=== PATIENT | male | born 1990 | race Caucasian/White ===

== ENCOUNTER 2021-10-26 13:24 | Emergency (ER) | payer OTHER ==
[~2021-10-26] VITALS: Ht 185.4 cm; Wt 79.4 kg
[2021-10-26 13:27] VITALS: BP 106/72
[2021-10-26] MEDS ORDERED: SULF400T11 PO (13:59)
[2021-10-26] MEDS ORDERED: IBUP800T27 PO (13:59)
[2021-10-26] MEDS ORDERED: GABA-339 PO (13:59)
== END 2021-10-26 14:03 | disposition home or self-care (01) ==
LOC: ER 13:24
DX: S50.821 Blister (nonthermal) of right forearm (principal); L08.9 Local infection of the skin and subcutaneous tissue, unspecified; G89.29 Other chronic pain; Z76.0 Encounter for issue of repeat prescription; F17.210 Nicotine dependence, cigarettes, uncomplicated; Z79.1 Long term (current) use of non-steroidal anti-inflammatories (NSAID); Z79.899 Other long term (current) drug therapy; X58.XXXD Exposure to other specified factors, subsequent encounter